=== PATIENT | male | born 1975 | race Caucasian/White ===

== ENCOUNTER 2018-06-21 07:01 | Emergency (ER) | payer SELFPAY ==
[2018-06-21] MEDS: TETRACAINE 0.5% OPHTH SOLN 4ML OD (07:45)
[2018-06-21] MEDS: LISSAMINE GREEN OPHTH 1.5 MG STRIP OD (07:45)
== END 2018-06-21 08:19 | disposition home or self-care (01) ==
LOC: M ED 07:01
DX: H10.9 Unspecified conjunctivitis (principal); R03.0 Elevated blood-pressure reading, without diagnosis of hypertension; Z72.0 Tobacco use
CPT/HCPCS: 99283